=== PATIENT | female | born 1935 | race Caucasian/White ===

== ENCOUNTER 2016-05-27 07:42 | Day surgery (SDC) | payer MEDICARE, OTHER ==
[~2016-05-27] VITALS: Ht 160 cm; Wt 99.8 kg
--- NOTE | 2016-05-27 07:08 | PCM.HPANE ---
Patient Data Surgeon Admitting Provider: Attending Provider:William Jurado MD Primary Care Physician:Payam Cason MD Other Provider:AssMary pennington Anesthesia Reason for Visit Rectal Bleeding Ht/WT & BMI Body Mass Index Allergies Coded Allergies: ether (Verified Allergy, Severe, Nausea,Vomiting, 12/11/15) azithromycin (Verified Allergy, Mild, Rash, 12/11/15) Past Anesthesia History Anesthesia History: Positive for:: Anesthesia Reactions (ether- vomiting), Denies:: Fam Anesthesia Reaction, Fam Malignant Hypertherm, Malignant Hyperthermia Diabetes History Hx Diabetes?: No MRSA MRSA: No Medications Blood Thinner: Aspirin Active Scripts [Senna/Docusate Sodium] (Senokot S)1 TABLET TABLET No Conflict Check1 Tablet PO BID PRN For Constipation #30 Prov:Mynor Duvall MD 12/14/15 Polyethylene Glycol 3350 (Miralax)17 Gm Powd.pack17 Gm PO DAILY PRN For Constipation #30 Prov:Mynor Duvall MD 12/14/15 Metoprolol Succinate ER 50 Mg Tab.er.60g156 Mg PO BID #60 Prov:Mynor Duvall MD 12/14/15 Losartan Potassium (Cozaar)25 Mg Awyajv85 Mg PO DAILY #60 TABLET Prov:Mynor Duvall MD 12/14/15 Reported Medications Pregabalin (Lyrica)25 Mg CapsuleUnknown Dose PO DAILY 30 Days Ref 0 05/27/16 Escitalopram Oxalate 5 Mg TabletUnknown Dose PO DAILY 30 Days Ref 0 05/27/16 Cholecalciferol (Vitamin D3) (Vitamin D)1,000 Unit Tablet1,000 Unit PO DAILY #1 BOTTLE Ref 0 05/26/16 Methocarbamol 500 Mg Snaqbg693 Mg PO PRN For Spasm 05/26/16 Glucosamine/Chondroitin/Vit D3 (Hqohijlh-Bomjxq-Lzn D3 Tab)1 Each Tablet1 Each PO DAILY 05/26/16 Ubidecarenone (Coq-10)100 Mg Iqdhkwo779 Mg PO DAILY 05/26/16 Loteprednol Etabonate (Lotemax)5 Ml Drops.susp1 Drop BOTH_EYES HS PRN For Eye Irritation 12/11/15 Docusate Calcium (Stool Softener)240 Mg Wzvhofg277 Mg PO DAILY PRN For Constipation 12/11/15 Aspirin 81 Mg Invkav19 Mg PO DAILY Ref 0 12/11/15 Rosuvastatin Calcium 5 Mg Tablet5 Mg PO DAILY #90 12/11/15 Nitroglycerin SL (Nitrostat)0.4 Mg Tab.subl0.4 Mg SL DIRECTED PRN For Chest Pain #100 12/11/15 Levothyroxine (Tirosint)88 Mcg Tlvqobb53 Mcg PO DAILY 03/13/14 Lysine 500 Mg Tablet1,000 Mg PO DAILYAC 03/13/14 Discontinued Reported Medications Levothyroxine (Synthroid)88 Mcg Rhhvbg44 Mcg PO DAILY Ref 0 05/26/16 Methocarbamol 500 Mg Lzksiy990 Mg PO BID PRN For Spasm 05/26/16 Duloxetine (Cymbalta)60 Mg Capsule.dr60 Mg PO DAILY Ref 0 05/26/16 Lorazepam (Ativan)0.5 Mg Tablet0.5 Mg PO DAILY PRN For Anxiety #30 12/11/15 Pramipexole Dihydrochloride 0.5 Mg Tablet0.5 Mg PO HS #90 12/11/15 Duloxetine 60 Mg Capsule.dr60 Mg PO BID #180 12/11/15 Methadone 5 Mg Yciyao45 Mg PO DAILY #70 12/11/15 Discontinued Scripts Amoxicillin/Clav K 875-125 mg 875 Mg Tab1 Tab PO BID #10 TAB Prov:Mynor Duvall MD 12/14/15 History History of ENT Problems?: Yes HEENT History: Positive for:: Cataracts (some but not operable) Dysphagia (esophageal spasams) Sinus Problem (blocked at times) Denies:: Hearing Problem Hx of Heart Problems?: Yes Cardiovascular History: Positive for:: Chest Pain (Currently) Congestive Heart Failure (yes) Edema Heart Murmur Hypertension Irregular Heartbeat Denies:: AICD Cardiac Surgery Pacemaker Thrombophlebitis Valvular Heart Disease Hx of Respiratory Problem?: Yes Respiratory History: Positive for:: Dyspnea (currently) Denies:: Asthma COPD Cough Emphysema Hemoptysis Pneumonia Tuberculosis Hx Neurologic Problems?: Yes Neurological History: Positive for:: Dizziness Headaches Denies:: Alzheimer's Disease CVA Parkinson's Disease Seizures Hx of GI Problems?: Yes Gastrointestinal History: Positive for:: Diverticulitis Gastroesphageal Reflux Gastrointestinal Bleeding Heartburn Hiatal Hernia Rectal Bleeding (hemorroids) Denies:: Hepatitis Hx of Problems?: No Female Hx: Positive for:: Problems with Breasts? (benign tumors) Denies:: Currently Endometriosis Pelvic Inflammatory Hx Musculoskeletal Problems?: Yes Musculoskeletal History: Positive for:: Back Injury (slipped and fell 40 years ago) Musculoskeletal Trauma (falling down stairs.) Denies:: Joint Replacement Hx of Psycho/Social Problems?: Yes Psycho Social History: Positive for:: Anxiety Hx Depression Denies:: Bipolar Disorder Suicide Attempt Hx Surgeries?: Yes (hysterectomy, cholecystectomy, appendectomy, partial thyroidectomy, ) Hx Any Other Health Problems?: Yes Other History: Positive for:: Hospitalization (surgries) Thyroid Disease (partially removed.) Denies:: Cancer History Blood Transfusions: Denies:: Blood Transfuse Reaction Blood Transfusions Hx Diabetes: No Hx Alcohol Use: YesHx Substance Use: Yes (ETOH "many years ago") Smoking Status: Never Smoker Have You Smoked inLast 12 mo: No Stop/Bang Risk Assessment Category Category 1A: Patient has history of documented sleep apnea, and HAS NOT received any narcotic, sedative or anesthesia administration during this stay. Category 1B: Patient has history of documented sleep apnea, and HAS received any narcotic , sedative or anesthesia administration during this stay Category 2: Patient has SUSPECTED Obstructive Sleep Apnea, and HAS received any narcotic , sedative or anesthesia administration during this stay. Category 3: Patient has SUSPECTED Obstructive Sleep Apnea and HAS NOT received narcotic, sedative or anesthesia administration during this stay. Category 4: Outpatient in Procedural Areas with known sleep apnea or who screen positive for High Risk via the STOP/BANG questionnaire. Exam Exam General Appearance: Alert, Oriented X3, Cooperative, No Acute Distress HEENT/AIRWAY: MP 2 Lungs: Clear to Auscultation, Normal Air Movement Heart: Exam Unremarkable, Regular Rate/Rhythm, No Murmurs/Rubs/Gallops Plan Impression Patient chart reviewed, patient interviewed and anesthestic plan with risks, benefits, and alternatives discussed, and informed consent obtained. ASA Physical Status: ASA2 Mod Systemic Disease Anesthetic Plan: MAC Bene/Risks/Altern/Consents: Yes HP Complete Prior to Induction: Yes Tamar Friedman MD May 27, 2016 07:08
[~2016-05-27 07:42] MED LIST: AGM875T PO; ASPI-973 PO; CHOL100043 PO; DOCU240C41 PO; DULO60CA42 PO; DULO60CA61 PO; GLUC-140 PO; LEVO88CA2 PO; LEVO88TA3 PO; LORA-302 PO; LOSA25TA2 PO; LOTE5DRO3 BOTH_EYES; LYSI500T3 PO; Lactated Ringer's 1,000 ML IV ONE; METH5TAB3 PO; METO-272 PO; NITR0.4T SL; POLY17PO6 PO; PRAM0.5T10 PO; ROB500 PO; ROSU5TAB9 PO; Senna/Docusate Sodium PO; UBID100C16 PO
[2016-05-27] MEDS ORDERED: fentaNYL-PF 50 mCg/mL 2 mL Inj ONE (07:43)
[2016-05-27] MEDS ORDERED: Propofol 10,000 mCg/mL 20 mL Inj ONE (07:43)
[2016-05-27] MEDS ORDERED: ESCI5TAB10 PO (08:02)
[2016-05-27] MEDS ORDERED: PREG25CA PO (08:02)
[2016-05-27 08:11] VITALS: BP 142/70; PULSE 51; RESP 16; O2SAT 94
[2016-05-27] MEDS ORDERED: MetoCLOpramide 5 mg/mL 2 mL Inj IVPUSH PRN (09:20)
[2016-05-27] MEDS ORDERED: Ondansetron 2 mg/mL 2 mL Inj IVPUSH PRN (09:20)
[2016-05-27] MEDS ORDERED: Lactated Ringer's 1,000 ML IV SCH (09:20)
--- NOTE | 2016-05-27 09:21 | PCM.ANEP1 ---
Post Anesthesia Phase 1 PACU Phase 1 Assessment Vital Signs Vital Signs Date Time Temp Pulse Resp B/P Pulse Ox O2 Delivery O2 Flow Rate FiO2 05/27/16 08:11 36.7 51 16 142/70 94 Room Air Anesthetic Administered: MAC Level of Alertness: Awake, talking BISHOP's with Equal Strength: Yes Pain: No Nausea or Vomiting: No Oxygen Delivery: Nasal Cannula Lungs: Clear to Auscultation, Normal Air Movement Tamar Friedman MD May 27, 2016 09:21
[2016-05-27 09:22] VITALS: BP 141/61; PULSE 46; RESP 16; O2SAT 95
--- NOTE | 2016-05-27 09:24 | PCM.ANEP2 ---
Post Anesthesia Evaluation ASA/CMS Post Anesthesia VS in Patient's Normal Range?: Yes Resp Stable; Airway Patent?: Yes CV Function & Hydration Stable: Yes Mental Status Recovered?: Yes Pain control Satisfactory?: Yes N/V Control Satisfactory?: Yes Tamar Friedman MD May 27, 2016 09:24
[2016-05-27 10:06] VITALS: BP 130/70; PULSE 51; RESP 16; O2SAT 95
--- NOTE | 2016-05-27 10:25 | ENDO ---
[address] [address] ENDOSCOPY PROCEDURE PATIENT: MACKENZIE SINCLAIR : 1935 MR#: [id number] ADMIT: 05/27/2016 JOB ID: [id number] PREOPERATIVE DIAGNOSES: 1. Personal history of colon polyps. 2. Rectal bleeding. POSTOPERATIVE DIAGNOSES: 1. Incomplete colonoscopy. 2. Snare polypectomy with cautery of large rectal polyp. 3. Two small proximal sigmoid colon polyps. 4. Mild sigmoid diverticulosis. OPERATION: Colonoscopy to hepatic flexure with snare polypectomy with cautery and cold forceps biopsy x2. SURGEON: William Jurado MD. INDICATIONS: An 80-year-old female who has a history of colon polyps. She recently has developed rectal bleeding, and a colonoscopy was recommended. She agreed to proceed and informed consent obtained. Because of her comorbidities, sedation was provided by Dr. Friedman. FINDINGS: She had a good prep. The scope could be advanced to the hepatic flexure but not beyond despite multiple efforts, abdominal wall compression and change of position on multiple attempts. On the way out I saw two small polyps in the proximal sigmoid colon that were removed with cold forceps, and mild sigmoid diverticulosis but in the distal rectum there was a large polyp that was broad-based. It grossly was consistent with a tubulovillous adenoma. It was removed in multiple pieces and submitted as a single specimen. The margins of the polypectomy site ultimately were 2 cm. DESCRIPTION OF PROCEDURE: The procedure and sedation plan was discussed with the patient and nursing staff, and a procedural time-out was held. A digital rectal exam was performed and then, the Olympus PCF-H180AL video colonoscope was passed transanally, advanced to the hepatic flexure and despite multiple efforts at abdominal wall compression in different places with two people pushing and change of position, I could not advance the scope beyond it. I brought the scope completely out where the polypectomies as described above were done and then I tried one more attempt. Once again, quickly got to the hepatic flexure but I could not get the scope beyond. I then abandoned the procedure, and plan to do a barium enema. IMPRESSION: 1. Large rectal polyp. 2. Proximal sigmoid colon polyps. 3. Mild diverticulosis. PLAN: I will schedule a barium enema to be done in two weeks and then, she will return to see me for followup. I will need to do a followup sigmoidoscopy in six months to reassess the margins of the rectal polyp.
--- NOTE | 2016-05-31 16:15 | PATH ---
SURGICAL PATHOLOGY Attending Physician:Jessica Forbes CASE STATUS: Signed Out PATIENT NAME: MACKENZIE SINCLAIR PID: [id number] : 1935 DATE COLLECTED:05/27/2016 18:18 SPECIMEN: 1: Rectum, Biopsy 2: Colon, Biopsy CLINICAL HISTORY: 1). RECTAL POLYP 2). PROXIMAL SIGMOID COLON POLYP FINAL DIAGNOSIS: 1. Rectal Polyp: Villous adenoma, multiple fragments. 2. Proximal Sigmoid Colon Polyp: Hyperplastic polyp. ICD10 D12.8, K63.5 GROSS DESCRIPTION: The specimen is received in two formalin filled containers labeled with the patient's name. 1). The specimen is sublabeled "rectal polyp" and consists of multiple portions of tissue which aggregate to 1.0 x 1.0 x 0.8 CM. The smallest pieces are entirely submitted. The largest piece is trisected and entirely submitted in the same cassette. 2). The specimen is sublabeled "proximal sigmoid polyp" and consists of 2 portions of tissue which aggregate to 0.3 x 0.3 x 0.2 CM. The specimen is entirely submitted in cassette 2A. 05/27/2016 [facility] MICRO DESCRIPTION: Please see diagnosis. ICD-9 CODES: CPT CODES: 1: 64320 2: 49038 Electronically Signed Out Kim Jaimes MD [facility], [place] [address] Technical component performed at [facility], [address] [place] [address] Ave[address], [place], [address]
== END 2016-05-27 23:59 | disposition home or self-care (01) ==
LOC: END 07:42
PROVIDERS: ATTEND Surgery
DX: D12.8 Benign neoplasm of rectum (principal); K63.5 Polyp of colon; K57.30 Diverticulosis of large intestine without perforation or abscess without bleeding; Z86.010 Personal history of colon polyps; I11.0 Hypertensive heart disease with heart failure; G47.00 Insomnia, unspecified; E78.5 Hyperlipidemia, unspecified; E03.9 Hypothyroidism, unspecified; K21.9 Gastro-esophageal reflux disease without esophagitis; G25.81 Restless legs syndrome; G47.33 Obstructive sleep apnea (adult) (pediatric); I50.9 Heart failure, unspecified; I51.81 Takotsubo syndrome; E66.9 Obesity, unspecified; F32.9 Major depressive disorder, single episode, unspecified; Z68.41 Body mass index [BMI] 40.0-44.9, adult; Z77.22 Contact with and (suspected) exposure to environmental tobacco smoke (acute) (chronic)
CPT/HCPCS: 45380; 45385; 88305; J2250; J3010; J7120